=== PATIENT | female | born 1955 | race Caucasian/White ===

== ENCOUNTER 2024-05-14 19:35 | Emergency (ER) | payer OTHER, MEDICAID ==
[~2024-05-14] VITALS: Ht 154.9 cm; Wt 44.5 kg
[~2024-05-14 19:35] MED LIST: ACET-3209 PO; AMLO10TA PO; BISA10SU60 RC; CLON0.1T2 PO; CYCL5TAB14 PO; DIAZ5TAB4 PO; EMPA25TA PO; FAMO-129 PO; GABA300C PO; HYDR-3972 PO; LOSA-416 PO; MAGN400O6 PO; NA P133E4 RC; POLY119P2 PO; TRAZ-251 PO; [UNRECOGNIZED DRUG - CODE] TOP
[2024-05-14] MEDS ORDERED: HYDR-3965 PO (21:16)
[2024-05-14] MEDS ORDERED: DIAZ5TAB22 PO (21:16)
[2024-05-14] MEDS: HYDROcodone/acetaminophen 10/325mg tab PO ONE (21:28)
[2024-05-14] MEDS: diazepam 5mg tablet PO ONE (21:28)
[2024-05-14 21:35] VITALS: BP 160/80; PULSE 80; RESP 18; TEMP 98.6; O2SAT 98
== END 2024-05-14 21:37 | disposition home or self-care (01) ==
LOC: ER 19:35
DX: F41.9 Anxiety disorder, unspecified (principal); Z76.0 Encounter for issue of repeat prescription; I10 Essential (primary) hypertension; Z88.1 Allergy status to other antibiotic agents; Z88.5 Allergy status to narcotic agent; Z88.8 Allergy status to other drugs, medicaments and biological substances
CPT/HCPCS: 99283